=== PATIENT | male | born 1955 | race Caucasian/White ===

== ENCOUNTER 2023-03-03 12:43 | Inpatient (IN) | payer OTHER ==
[2023-03-03] MEDS ORDERED: SODIUM CHLORIDE 0.9% 500 ML INFUS.BAG IV ONE ×2 (13:36→15:40)
[2023-03-03] MEDS ORDERED: ACETAMINOPHEN 1000 MG/100 ML BAG IVPB ONE (13:36)
[2023-03-03 14:51] LABS: BASO % 0.5 % (0-2.0); EOS % 2.3 % (0-4.5); HEMATOCRIT 39.2 % (35.4-49); HEMOGLOBIN 13.2 GM/dL (11.7-16.9); MCH 32.7 pg (25.7-33.7); MCHC 33.6 g/dl (32.0-35.9); MEAN CELL VOLUME 97.4 fl (80-96); MEAN PLT VOLUME 8.5 fl (7.5-11.1); MONO % 10.9 % (3.8-10.2); NEUT % 50.3 % (42.8-82.8); PLATELET COUNT 294 10^3/uL (134-434); RBC 4.02 M/mm3 (4.00-5.60); RDW 13.6 % (11.9-15.9); WHITE BLOOD COUNT 7.4 K/mm3 (4.0-10.0)
[2023-03-03 15:01] LABS: POTASSIUM 4.1 mmol/L (3.5-5.1)
[2023-03-03 15:04] LABS: CALCIUM 8.8 mg/dL (8.5-10.1)
[2023-03-03 15:05] LABS: ALBUMIN 3.4 g/dl (3.4-5.0); BLOOD UREA NITROGEN 25.2 mg/dL (7-18)
[2023-03-03 15:08] LABS: CREATININE 0.8 mg/dL (0.55-1.3)
[2023-03-03 15:10] LABS: BILIRUBIN,TOTAL 1.3 mg/dL (0.2-1); TOT PROT 7.6 g/dl (6.4-8.2)
[2023-03-03 15:27] LABS: EPI CELLS 1 /uL (0-25.1); HYALINE CASTS 0 /uL (0-3.1); PH,URINE 5.5 (5.0-8.0); URINE APPEARANCE CLOUDY; URINE BACTERIA >9,000 /uL (0-1359); URINE BILIRUBIN NEGATIVE (NEGATIVE); URINE COLOR DK YELLOW; URINE GLUCOSE (UA) NEGATIVE (NEGATIVE); URINE KETONE NEGATIVE (NEGATIVE); URINE LEUK ESTERASE 3+ (NEGATIVE); URINE NITRITE POSITIVE (NEGATIVE); URINE PROTEIN TRACE (NEGATIVE); URINE RBC 33 /uL (0-23.9); URINE WBC 2709 /uL (0-25.8)
[2023-03-03] MEDS ORDERED: CEFTRIAXONE 1,000 MG in DEXTROSE 5%-WATER - 50 ML IVPB ONE (15:34)
[2023-03-03] MEDS ORDERED: CEFTRIAXONE 1 GM in DEXTROSE 5%-WATER - 50 ML IVPB ONE (16:02)
[2023-03-03] MEDS ORDERED: CEFTRIAXONE 1 GM/50 ML BAG ONE (16:40)
[2023-03-03] MEDS ORDERED: ACETAMINOPHEN INJECTION 100 ML IVPB ONE (18:44)
[2023-03-03] MEDS ORDERED: SODIUM PHOSPHATE/NA BIPHOS 133 ML ENEMA PR ONE (18:54)
[2023-03-03 22:29] LABS: BILIRUBIN,DIRECT 0.2 mg/dL (0.0-0.2)
[2023-03-04] MEDS: SODIUM CHLORIDE 1,000 ML IV SCH ×2 (03:11→23:37)
[2023-03-04] MEDS ORDERED: POLYETHYLENE GLYCOL (HEALTHYLAX) 3350 17 GM PACKET PO SCH (06:00)
[2023-03-04] MEDS: LEVOTHYROXINE NA 25 MCG TABLET (FP) PO SCH (07:02)
[2023-03-04] MEDS: ENOXAPARIN NA (PORCINE) 40 MG/0.4 ML DISP.SYRIN SQ SCH (11:05)
[2023-03-04 12:43] LABS: POTASSIUM 3.9 mmol/L (3.5-5.1)
[2023-03-04 12:46] LABS: BLOOD UREA NITROGEN 16.8 mg/dL (7-18); CALCIUM 8.4 mg/dL (8.5-10.1); MAGNESIUM 1.8 mg/dL (1.8-2.4)
[2023-03-04 12:50] LABS: CREATININE 0.7 mg/dL (0.55-1.3); HEMATOCRIT 38.4 % (35.4-49); HEMOGLOBIN 13.3 GM/dL (11.7-16.9); MCH 32.8 pg (25.7-33.7); MCHC 34.7 g/dl (32.0-35.9); MEAN CELL VOLUME 94.5 fl (80-96); MEAN PLT VOLUME 8.3 fl (7.5-11.1); PHOSPHOROUS 2.6 mg/dL (2.5-4.9); PLATELET COUNT 287 10^3/uL (134-434); RBC 4.06 M/mm3 (4.00-5.60); RDW 13.3 % (11.9-15.9); WHITE BLOOD COUNT 6.8 K/mm3 (4.0-10.0)
[2023-03-04 12:51] LABS: BILIRUBIN,TOTAL 1.1 mg/dL (0.2-1); TOT PROT 6.6 g/dl (6.4-8.2)
[2023-03-04] MEDS ORDERED: ACETAMINOPHEN 325 MG TABLET (FP) PO PRN (13:34)
[2023-03-04] MEDS: CEFTRIAXONE 1 GM in DEXTROSE 5%-WATER - 50 ML IVPB SCH (18:30)
[2023-03-04] MEDS: ATORVASTATIN CA 20 MG TABLET (FP) PO SCH (22:16)
[2023-03-04] MEDS: MELATONIN 5 MG TABLETS PO SCH (22:16)
[2023-03-04] MEDS: MIRTAZAPINE 15 MG TABLET (FP) PO SCH (22:16)
[2023-03-04] MEDS: ACETAMINOPHEN 325 MG TABLET (FP) PO PRN (23:37)
[2023-03-05] MEDS: LEVOTHYROXINE NA 25 MCG TABLET (FP) PO SCH (06:09)
[2023-03-05 09:22] LABS: BASO % 0.6 % (0-2.0); EOS % 2.8 % (0-4.5); HEMATOCRIT 36.4 % (35.4-49); HEMOGLOBIN 12.8 GM/dL (11.7-16.9); LYMPH % 38.4 % (8-40); MCH 33.1 pg (25.7-33.7); MCHC 35.2 g/dl (32.0-35.9); MEAN CELL VOLUME 94.2 fl (80-96); MEAN PLT VOLUME 7.8 fl (7.5-11.1); MONO % 9.4 % (3.8-10.2); NEUT % 48.8 % (42.8-82.8); PLATELET COUNT 279 10^3/uL (134-434); RBC 3.87 M/mm3 (4.00-5.60); RDW 13.4 % (11.9-15.9); WHITE BLOOD COUNT 5.2 K/mm3 (4.0-10.0)
[2023-03-05 09:45] LABS: CALCIUM 8.9 mg/dL (8.5-10.1)
[2023-03-05 09:46] LABS: BLOOD UREA NITROGEN 13.3 mg/dL (7-18)
[2023-03-05 09:50] LABS: CREATININE 0.7 mg/dL (0.55-1.3)
[2023-03-05 09:51] LABS: BILIRUBIN,TOTAL 0.7 mg/dL (0.2-1)
[2023-03-05 09:52] LABS: TOT PROT 6.5 g/dl (6.4-8.2)
[2023-03-05] MEDS ORDERED: POLYETHYLENE GLYCOL 3350 255 GM BTL PO SCH (10:00)
[2023-03-05] MEDS: CEFTRIAXONE 1 GM in DEXTROSE 5%-WATER - 50 ML IVPB SCH (11:08)
[2023-03-05] MEDS: POLYETHYLENE GLYCOL (HEALTHYLAX) 3350 17 GM PACKET PO SCH (11:08)
[2023-03-05] MEDS: ENOXAPARIN NA (PORCINE) 40 MG/0.4 ML DISP.SYRIN SQ SCH (11:08)
[2023-03-05] MEDS: MULTIVITAMINS (DAILY MVI) TABLET (FP) PO SCH (11:09)
[2023-03-05] MEDS: amLODIPine BESYLATE 5 MG TABLET (FP) PO SCH (11:09)
[2023-03-05] MEDS: FOLIC ACID 1 MG TABLET (FP) PO SCH (11:09)
[2023-03-05] MEDS: metoPROLOL SUCCINATE 25 MG TAB.SR.24H (FP) PO SCH (11:09)
[2023-03-05] MEDS: ASPIRIN COATED 81 MG TABLET.EC PO SCH (11:09)
[2023-03-05] MEDS: clonazePAM 0.5 MG TABLET PO SCH (11:10)
[2023-03-05] MEDS: MAGNESIUM OXIDE 400 MG TABLET (FP) PO SCH (11:10)
[2023-03-05] MEDS: FAMOTIDINE 20 MG TABLET PO SCH (11:10)
[2023-03-05] MEDS: THIAMINE HCL 100 MG TABLET (FP) PO SCH (11:11)
[2023-03-05] MEDS: MELATONIN 5 MG TABLETS PO SCH (21:31)
[2023-03-05] MEDS: MIRTAZAPINE 15 MG TABLET (FP) PO SCH (21:31)
[2023-03-05] MEDS: ATORVASTATIN CA 20 MG TABLET (FP) PO SCH (21:31)
[2023-03-05] MEDS: ACETAMINOPHEN 325 MG TABLET (FP) PO PRN (21:38)
[2023-03-06] MEDS: ACETAMINOPHEN 325 MG TABLET (FP) PO PRN (04:00)
[2023-03-06] MEDS: SODIUM CHLORIDE 1,000 ML IV SCH ×2 (04:02→21:38)
[2023-03-06] MEDS: LEVOTHYROXINE NA 25 MCG TABLET (FP) PO SCH (06:02)
[2023-03-06] MEDS: MAGNESIUM OXIDE 400 MG TABLET (FP) PO SCH (09:54)
[2023-03-06] MEDS: clonazePAM 0.5 MG TABLET PO SCH (09:54)
[2023-03-06] MEDS: amLODIPine BESYLATE 5 MG TABLET (FP) PO SCH (09:54)
[2023-03-06] MEDS: MULTIVITAMINS (DAILY MVI) TABLET (FP) PO SCH (09:54)
[2023-03-06] MEDS: ASPIRIN COATED 81 MG TABLET.EC PO SCH (09:54)
[2023-03-06] MEDS: FOLIC ACID 1 MG TABLET (FP) PO SCH (09:54)
[2023-03-06] MEDS: metoPROLOL SUCCINATE 25 MG TAB.SR.24H (FP) PO SCH (09:54)
[2023-03-06] MEDS: THIAMINE HCL 100 MG TABLET (FP) PO SCH (09:54)
[2023-03-06] MEDS: FAMOTIDINE 20 MG TABLET PO SCH (09:54)
[2023-03-06] MEDS: CEFTRIAXONE 1 GM in DEXTROSE 5%-WATER - 50 ML IVPB SCH (09:55)
[2023-03-06] MEDS: ENOXAPARIN NA (PORCINE) 40 MG/0.4 ML DISP.SYRIN SQ SCH (09:55)
[2023-03-06] MEDS: POLYETHYLENE GLYCOL (HEALTHYLAX) 3350 17 GM PACKET PO SCH (09:55)
[2023-03-06] MEDS: FINASTERIDE 5 MG TABLET (FP) PO SCH (11:39)
[2023-03-06] MEDS ORDERED: TAMSULOSIN HCL 0.4 MG CAP PO SCH (16:11)
[2023-03-06] MEDS: traMADol HCL 50 MG TABLET PO PRN (16:22)
[2023-03-06] MEDS ORDERED: LIDOCAINE HCL 2% JELLY 10 ML CARTRIDGE TP ONE (16:30)
[2023-03-06] MEDS: TAMSULOSIN HCL 0.4 MG CAP PO SCH (16:30)
[2023-03-06] MEDS: MELATONIN 5 MG TABLETS PO SCH (21:39)
[2023-03-06] MEDS: ATORVASTATIN CA 20 MG TABLET (FP) PO SCH (21:39)
[2023-03-06] MEDS: MIRTAZAPINE 15 MG TABLET (FP) PO SCH (21:40)
[2023-03-07] MEDS: SODIUM CHLORIDE 1,000 ML IV SCH ×2 (02:42→16:01)
[2023-03-07] MEDS: LEVOTHYROXINE NA 25 MCG TABLET (FP) PO SCH (06:20)
[2023-03-07] MEDS: traMADol HCL 50 MG TABLET PO PRN (07:11)
[2023-03-07] MEDS ORDERED: TAMSULOSIN HCL 0.4 MG CAP PO SCH (08:30)
[2023-03-07] MEDS: POLYETHYLENE GLYCOL (HEALTHYLAX) 3350 17 GM PACKET PO SCH (09:50)
[2023-03-07] MEDS: ENOXAPARIN NA (PORCINE) 40 MG/0.4 ML DISP.SYRIN SQ SCH (09:50)
[2023-03-07] MEDS: FOLIC ACID 1 MG TABLET (FP) PO SCH (09:52)
[2023-03-07] MEDS: FINASTERIDE 5 MG TABLET (FP) PO SCH (09:52)
[2023-03-07] MEDS: MAGNESIUM OXIDE 400 MG TABLET (FP) PO SCH (09:52)
[2023-03-07] MEDS: MULTIVITAMINS (DAILY MVI) TABLET (FP) PO SCH (09:52)
[2023-03-07] MEDS: TAMSULOSIN HCL 0.4 MG CAP PO SCH ×2 (09:52→21:49)
[2023-03-07] MEDS: ASPIRIN COATED 81 MG TABLET.EC PO SCH (09:53)
[2023-03-07] MEDS: FAMOTIDINE 20 MG TABLET PO SCH (09:53)
[2023-03-07] MEDS: clonazePAM 0.5 MG TABLET PO SCH (09:53)
[2023-03-07] MEDS: amLODIPine BESYLATE 5 MG TABLET (FP) PO SCH (09:53)
[2023-03-07] MEDS: THIAMINE HCL 100 MG TABLET (FP) PO SCH (09:53)
[2023-03-07] MEDS: metoPROLOL SUCCINATE 25 MG TAB.SR.24H (FP) PO SCH (09:54)
[2023-03-07] MEDS: CEFTRIAXONE 1 GM in DEXTROSE 5%-WATER - 50 ML IVPB SCH (09:55)
[2023-03-07] MEDS: ACETAMINOPHEN 325 MG TABLET (FP) PO PRN ×2 (10:49→21:58)
[2023-03-07] MEDS: MIRTAZAPINE 15 MG TABLET (FP) PO SCH (21:48)
[2023-03-07] MEDS: MELATONIN 5 MG TABLETS PO SCH (21:48)
[2023-03-07] MEDS: ATORVASTATIN CA 20 MG TABLET (FP) PO SCH (21:49)
[2023-03-08] MEDS: SODIUM CHLORIDE 1,000 ML IV SCH ×2 (02:50→19:55)
[2023-03-08] MEDS: LEVOTHYROXINE NA 25 MCG TABLET (FP) PO SCH (06:29)
[2023-03-08 08:35] LABS: BASO % 0.3 % (0-2.0); EOS % 1.9 % (0-4.5); HEMATOCRIT 35.7 % (35.4-49); HEMOGLOBIN 12.5 GM/dL (11.7-16.9); LYMPH % 20.5 % (8-40); MCHC 34.9 g/dl (32.0-35.9); MEAN CELL VOLUME 94.4 fl (80-96); MEAN PLT VOLUME 7.8 fl (7.5-11.1); MONO % 7.2 % (3.8-10.2); NEUT % 70.1 % (42.8-82.8); PLATELET COUNT 251 10^3/uL (134-434); RBC 3.78 M/mm3 (4.00-5.60); RDW 13.5 % (11.9-15.9); WHITE BLOOD COUNT 8.6 K/mm3 (4.0-10.0)
[2023-03-08 08:39] LABS: INR 1.34 (0.83-1.09); PROTHROMBIN TIME (PATIENT) 15.5 SEC (9.7-13.0)
[2023-03-08 08:42] LABS: ACTIVATED PTT 36.7 SECONDS (25.2-36.5)
[2023-03-08 09:03] LABS: POTASSIUM 3.8 mmol/L (3.5-5.1)
[2023-03-08 09:06] LABS: CALCIUM 8.5 mg/dL (8.5-10.1)
[2023-03-08 09:07] LABS: ALBUMIN 2.8 g/dl (3.4-5.0); BLOOD UREA NITROGEN 12.8 mg/dL (7-18)
[2023-03-08 09:10] LABS: CREATININE 0.7 mg/dL (0.55-1.3)
[2023-03-08 09:11] LABS: BILIRUBIN,TOTAL 0.6 mg/dL (0.2-1); TOT PROT 6.1 g/dl (6.4-8.2)
[2023-03-08] MEDS: POLYETHYLENE GLYCOL (HEALTHYLAX) 3350 17 GM PACKET PO SCH (11:22)
[2023-03-08] MEDS: CEFTRIAXONE 1 GM in DEXTROSE 5%-WATER - 50 ML IVPB SCH (11:22)
[2023-03-08] MEDS: ENOXAPARIN NA (PORCINE) 40 MG/0.4 ML DISP.SYRIN SQ SCH (11:30)
[2023-03-08] MEDS: ASPIRIN COATED 81 MG TABLET.EC PO SCH (11:31)
[2023-03-08] MEDS: FOLIC ACID 1 MG TABLET (FP) PO SCH (11:31)
[2023-03-08] MEDS: clonazePAM 0.5 MG TABLET PO SCH (11:31)
[2023-03-08] MEDS: MAGNESIUM OXIDE 400 MG TABLET (FP) PO SCH (11:31)
[2023-03-08] MEDS: TAMSULOSIN HCL 0.4 MG CAP PO SCH ×2 (11:31→21:14)
[2023-03-08] MEDS: THIAMINE HCL 100 MG TABLET (FP) PO SCH (11:31)
[2023-03-08] MEDS: FINASTERIDE 5 MG TABLET (FP) PO SCH (11:31)
[2023-03-08] MEDS: metoPROLOL SUCCINATE 25 MG TAB.SR.24H (FP) PO SCH (11:32)
[2023-03-08] MEDS: FAMOTIDINE 20 MG TABLET PO SCH (11:32)
[2023-03-08] MEDS: MULTIVITAMINS (DAILY MVI) TABLET (FP) PO SCH (11:32)
[2023-03-08] MEDS: amLODIPine BESYLATE 5 MG TABLET (FP) PO SCH (11:33)
[2023-03-08] MEDS: traMADol HCL 50 MG TABLET PO PRN (11:38)
[2023-03-08] MEDS: ACETAMINOPHEN 325 MG TABLET (FP) PO PRN (11:57)
[2023-03-08] MEDS ORDERED: MIDAZOLAM HCL 2 MG/2 ML SINGLE DOSE VIAL ONE (18:02)
[2023-03-08] MEDS ORDERED: FENTANYL CITRATE/PF 50 MCG/ML VIAL ONE ×2 (18:02→19:19)
[2023-03-08] MEDS ORDERED: ceFAZolin SODIUM 1 GM VIAL IVPB ONE (18:20)
[2023-03-08] MEDS ORDERED: LACTATED RINGERS SOLUTION 1,000 ML IV SCH (19:00)
[2023-03-08] MEDS ORDERED: traMADol HCL 50 MG TABLET PO PRN (19:11)
[2023-03-08] MEDS: MIRTAZAPINE 15 MG TABLET (FP) PO SCH (21:14)
[2023-03-08] MEDS: ATORVASTATIN CA 20 MG TABLET (FP) PO SCH (21:14)
[2023-03-08] MEDS: MELATONIN 5 MG TABLETS PO SCH (21:14)
[2023-03-09] MEDS: ACETAMINOPHEN 325 MG TABLET (FP) PO PRN (05:41)
[2023-03-09] MEDS: LEVOTHYROXINE NA 25 MCG TABLET (FP) PO SCH (06:40)
[2023-03-09 09:03] LABS: BASO % 0.3 % (0-2.0); EOS % 1.6 % (0-4.5); HEMATOCRIT 36.6 % (35.4-49); HEMOGLOBIN 12.2 GM/dL (11.7-16.9); LYMPH % 17.9 % (8-40); MCH 32.2 pg (25.7-33.7); MCHC 33.2 g/dl (32.0-35.9); MEAN CELL VOLUME 97.1 fl (80-96); MEAN PLT VOLUME 7.8 fl (7.5-11.1); NEUT % 73.2 % (42.8-82.8); PLATELET COUNT 253 10^3/uL (134-434); RBC 3.77 M/mm3 (4.00-5.60); RDW 13.3 % (11.9-15.9); WHITE BLOOD COUNT 7.4 K/mm3 (4.0-10.0)
[2023-03-09 09:32] LABS: POTASSIUM 3.8 mmol/L (3.5-5.1)
[2023-03-09 09:35] LABS: ALBUMIN 2.8 g/dl (3.4-5.0); BLOOD UREA NITROGEN 12.5 mg/dL (7-18); CALCIUM 8.6 mg/dL (8.5-10.1)
[2023-03-09 09:38] LABS: CREATININE 0.8 mg/dL (0.55-1.3)
[2023-03-09 09:39] LABS: BILIRUBIN,TOTAL 0.6 mg/dL (0.2-1)
[2023-03-09] MEDS: CEFTRIAXONE 1 GM in DEXTROSE 5%-WATER - 50 ML IVPB SCH (10:31)
[2023-03-09] MEDS: POLYETHYLENE GLYCOL (HEALTHYLAX) 3350 17 GM PACKET PO SCH (10:32)
[2023-03-09] MEDS: FAMOTIDINE 20 MG TABLET PO SCH (10:32)
[2023-03-09] MEDS: MAGNESIUM OXIDE 400 MG TABLET (FP) PO SCH (10:32)
[2023-03-09] MEDS: FOLIC ACID 1 MG TABLET (FP) PO SCH (10:32)
[2023-03-09] MEDS: ENOXAPARIN NA (PORCINE) 40 MG/0.4 ML DISP.SYRIN SQ SCH (10:32)
[2023-03-09] MEDS: MULTIVITAMINS (DAILY MVI) TABLET (FP) PO SCH (10:33)
[2023-03-09] MEDS: metoPROLOL SUCCINATE 25 MG TAB.SR.24H (FP) PO SCH (10:33)
[2023-03-09] MEDS: amLODIPine BESYLATE 5 MG TABLET (FP) PO SCH (10:33)
[2023-03-09] MEDS: FINASTERIDE 5 MG TABLET (FP) PO SCH (10:33)
[2023-03-09] MEDS: ASPIRIN COATED 81 MG TABLET.EC PO SCH (10:33)
[2023-03-09] MEDS: clonazePAM 0.5 MG TABLET PO SCH (10:33)
[2023-03-09] MEDS: THIAMINE HCL 100 MG TABLET (FP) PO SCH (10:33)
[2023-03-09] MEDS: TAMSULOSIN HCL 0.4 MG CAP PO SCH ×2 (10:33→21:42)
[2023-03-09 12:08] VITALS: BMI 23.3
[2023-03-09] MEDS: SODIUM CHLORIDE 1,000 ML IV SCH (21:40)
[2023-03-09] MEDS: ATORVASTATIN CA 20 MG TABLET (FP) PO SCH (21:41)
[2023-03-09] MEDS: MELATONIN 5 MG TABLETS PO SCH (21:42)
[2023-03-09] MEDS: MIRTAZAPINE 15 MG TABLET (FP) PO SCH (21:42)
[2023-03-10] MEDS: LEVOTHYROXINE NA 25 MCG TABLET (FP) PO SCH (06:44)
[2023-03-10] MEDS: ENOXAPARIN NA (PORCINE) 40 MG/0.4 ML DISP.SYRIN SQ SCH (10:41)
[2023-03-10] MEDS: CEFTRIAXONE 1 GM in DEXTROSE 5%-WATER - 50 ML IVPB SCH (10:42)
[2023-03-10] MEDS: MULTIVITAMINS (DAILY MVI) TABLET (FP) PO SCH (10:43)
[2023-03-10] MEDS: ASPIRIN COATED 81 MG TABLET.EC PO SCH (10:43)
[2023-03-10] MEDS: FAMOTIDINE 20 MG TABLET PO SCH (10:43)
[2023-03-10] MEDS: TAMSULOSIN HCL 0.4 MG CAP PO SCH ×2 (10:43→22:52)
[2023-03-10] MEDS: metoPROLOL SUCCINATE 25 MG TAB.SR.24H (FP) PO SCH (10:43)
[2023-03-10] MEDS: FINASTERIDE 5 MG TABLET (FP) PO SCH (10:43)
[2023-03-10] MEDS: THIAMINE HCL 100 MG TABLET (FP) PO SCH (10:43)
[2023-03-10] MEDS: MAGNESIUM OXIDE 400 MG TABLET (FP) PO SCH (10:43)
[2023-03-10] MEDS: FOLIC ACID 1 MG TABLET (FP) PO SCH (10:43)
[2023-03-10] MEDS: POLYETHYLENE GLYCOL (HEALTHYLAX) 3350 17 GM PACKET PO SCH (10:44)
[2023-03-10] MEDS: amLODIPine BESYLATE 5 MG TABLET (FP) PO SCH (10:44)
[2023-03-10] MEDS: clonazePAM 0.5 MG TABLET PO SCH (10:44)
[2023-03-10] MEDS: SODIUM CHLORIDE 1,000 ML IV SCH (21:06)
[2023-03-10] MEDS: MIRTAZAPINE 15 MG TABLET (FP) PO SCH (22:53)
[2023-03-10] MEDS: MELATONIN 5 MG TABLETS PO SCH (22:53)
[2023-03-10] MEDS: ACETAMINOPHEN 325 MG TABLET (FP) PO PRN (22:53)
[2023-03-10] MEDS: ATORVASTATIN CA 20 MG TABLET (FP) PO SCH (22:53)
[2023-03-11] MEDS: SODIUM CHLORIDE 1,000 ML IV SCH ×2 (02:13→20:00)
[2023-03-11] MEDS: LEVOTHYROXINE NA 25 MCG TABLET (FP) PO SCH (06:26)
[2023-03-11] MEDS: ENOXAPARIN NA (PORCINE) 40 MG/0.4 ML DISP.SYRIN SQ SCH (09:46)
[2023-03-11] MEDS: MAGNESIUM OXIDE 400 MG TABLET (FP) PO SCH (09:48)
[2023-03-11] MEDS: TAMSULOSIN HCL 0.4 MG CAP PO SCH ×2 (09:48→22:18)
[2023-03-11] MEDS: FINASTERIDE 5 MG TABLET (FP) PO SCH (09:48)
[2023-03-11] MEDS: MULTIVITAMINS (DAILY MVI) TABLET (FP) PO SCH (09:48)
[2023-03-11] MEDS: FOLIC ACID 1 MG TABLET (FP) PO SCH (09:48)
[2023-03-11] MEDS: ASPIRIN COATED 81 MG TABLET.EC PO SCH (09:49)
[2023-03-11] MEDS: FAMOTIDINE 20 MG TABLET PO SCH (09:49)
[2023-03-11] MEDS: THIAMINE HCL 100 MG TABLET (FP) PO SCH (09:49)
[2023-03-11] MEDS: clonazePAM 0.5 MG TABLET PO SCH (09:49)
[2023-03-11] MEDS: POLYETHYLENE GLYCOL (HEALTHYLAX) 3350 17 GM PACKET PO SCH (09:50)
[2023-03-11] MEDS: metoPROLOL SUCCINATE 25 MG TAB.SR.24H (FP) PO SCH (09:50)
[2023-03-11] MEDS: amLODIPine BESYLATE 5 MG TABLET (FP) PO SCH (09:51)
[2023-03-11] MEDS: CEFTRIAXONE 1 GM in DEXTROSE 5%-WATER - 50 ML IVPB SCH (11:14)
[2023-03-11] MEDS: ATORVASTATIN CA 20 MG TABLET (FP) PO SCH (22:18)
[2023-03-11] MEDS: MELATONIN 5 MG TABLETS PO SCH (22:18)
[2023-03-11] MEDS: MIRTAZAPINE 15 MG TABLET (FP) PO SCH (22:18)
[2023-03-12] MEDS: LEVOTHYROXINE NA 25 MCG TABLET (FP) PO SCH (06:06)
[2023-03-12] MEDS: ACETAMINOPHEN 325 MG TABLET (FP) PO PRN (06:06)
[2023-03-12] MEDS: CEFTRIAXONE 1 GM in DEXTROSE 5%-WATER - 50 ML IVPB SCH (10:15)
[2023-03-12] MEDS: MAGNESIUM OXIDE 400 MG TABLET (FP) PO SCH (10:16)
[2023-03-12] MEDS: MULTIVITAMINS (DAILY MVI) TABLET (FP) PO SCH (10:16)
[2023-03-12] MEDS: FINASTERIDE 5 MG TABLET (FP) PO SCH (10:16)
[2023-03-12] MEDS: ASPIRIN COATED 81 MG TABLET.EC PO SCH (10:16)
[2023-03-12] MEDS: THIAMINE HCL 100 MG TABLET (FP) PO SCH (10:16)
[2023-03-12] MEDS: POLYETHYLENE GLYCOL (HEALTHYLAX) 3350 17 GM PACKET PO SCH (10:16)
[2023-03-12] MEDS: clonazePAM 0.5 MG TABLET PO SCH (10:16)
[2023-03-12] MEDS: metoPROLOL SUCCINATE 25 MG TAB.SR.24H (FP) PO SCH ×2 (10:16→10:23)
[2023-03-12] MEDS: TAMSULOSIN HCL 0.4 MG CAP PO SCH ×2 (10:17→21:20)
[2023-03-12] MEDS: amLODIPine BESYLATE 5 MG TABLET (FP) PO SCH (10:17)
[2023-03-12] MEDS: FAMOTIDINE 20 MG TABLET PO SCH (10:17)
[2023-03-12] MEDS: ENOXAPARIN NA (PORCINE) 40 MG/0.4 ML DISP.SYRIN SQ SCH (10:17)
[2023-03-12] MEDS: FOLIC ACID 1 MG TABLET (FP) PO SCH (10:17)
[2023-03-12] MEDS: SODIUM CHLORIDE 1,000 ML IV SCH (21:19)
[2023-03-12] MEDS: ATORVASTATIN CA 20 MG TABLET (FP) PO SCH (21:20)
[2023-03-12] MEDS: MELATONIN 5 MG TABLETS PO SCH (21:21)
[2023-03-12] MEDS: MIRTAZAPINE 15 MG TABLET (FP) PO SCH (21:21)
[2023-03-13] MEDS: LEVOTHYROXINE NA 25 MCG TABLET (FP) PO SCH (06:12)
[2023-03-13] MEDS: TAMSULOSIN HCL 0.4 MG CAP PO SCH ×2 (10:58→22:04)
[2023-03-13] MEDS: THIAMINE HCL 100 MG TABLET (FP) PO SCH (10:58)
[2023-03-13] MEDS: CEFTRIAXONE 1 GM in DEXTROSE 5%-WATER - 50 ML IVPB SCH (10:58)
[2023-03-13] MEDS: metoPROLOL SUCCINATE 25 MG TAB.SR.24H (FP) PO SCH (10:58)
[2023-03-13] MEDS: FINASTERIDE 5 MG TABLET (FP) PO SCH (10:58)
[2023-03-13] MEDS: MULTIVITAMINS (DAILY MVI) TABLET (FP) PO SCH (10:58)
[2023-03-13] MEDS: MAGNESIUM OXIDE 400 MG TABLET (FP) PO SCH (10:58)
[2023-03-13] MEDS: ASPIRIN COATED 81 MG TABLET.EC PO SCH (10:58)
[2023-03-13] MEDS: clonazePAM 0.5 MG TABLET PO SCH (10:58)
[2023-03-13] MEDS: FAMOTIDINE 20 MG TABLET PO SCH (10:58)
[2023-03-13] MEDS: amLODIPine BESYLATE 5 MG TABLET (FP) PO SCH (10:58)
[2023-03-13] MEDS: FOLIC ACID 1 MG TABLET (FP) PO SCH (10:58)
[2023-03-13] MEDS: ENOXAPARIN NA (PORCINE) 40 MG/0.4 ML DISP.SYRIN SQ SCH (10:59)
[2023-03-13] MEDS: POLYETHYLENE GLYCOL (HEALTHYLAX) 3350 17 GM PACKET PO SCH (11:00)
[2023-03-13] MEDS: SODIUM CHLORIDE 1,000 ML IV SCH (22:01)
[2023-03-13] MEDS: MIRTAZAPINE 15 MG TABLET (FP) PO SCH ×2 (22:04→22:08)
[2023-03-13] MEDS: ATORVASTATIN CA 20 MG TABLET (FP) PO SCH (22:04)
[2023-03-13] MEDS: MELATONIN 5 MG TABLETS PO SCH (22:08)
[2023-03-14] MEDS: LEVOTHYROXINE NA 25 MCG TABLET (FP) PO SCH (06:15)
[2023-03-14] MEDS: MAGNESIUM OXIDE 400 MG TABLET (FP) PO SCH (10:34)
[2023-03-14] MEDS: THIAMINE HCL 100 MG TABLET (FP) PO SCH (10:34)
[2023-03-14] MEDS: ASPIRIN COATED 81 MG TABLET.EC PO SCH (10:35)
[2023-03-14] MEDS: FAMOTIDINE 20 MG TABLET PO SCH (10:35)
[2023-03-14] MEDS: clonazePAM 0.5 MG TABLET PO SCH (10:35)
[2023-03-14] MEDS: metoPROLOL SUCCINATE 25 MG TAB.SR.24H (FP) PO SCH (10:35)
[2023-03-14] MEDS: TAMSULOSIN HCL 0.4 MG CAP PO SCH ×2 (10:35→21:34)
[2023-03-14] MEDS: MULTIVITAMINS (DAILY MVI) TABLET (FP) PO SCH (10:35)
[2023-03-14] MEDS: POLYETHYLENE GLYCOL (HEALTHYLAX) 3350 17 GM PACKET PO SCH (10:35)
[2023-03-14] MEDS: FOLIC ACID 1 MG TABLET (FP) PO SCH (10:35)
[2023-03-14] MEDS: amLODIPine BESYLATE 5 MG TABLET (FP) PO SCH (10:35)
[2023-03-14] MEDS: ENOXAPARIN NA (PORCINE) 40 MG/0.4 ML DISP.SYRIN SQ SCH (10:35)
[2023-03-14] MEDS: FINASTERIDE 5 MG TABLET (FP) PO SCH (10:35)
[2023-03-14] MEDS: CEFTRIAXONE 1 GM in DEXTROSE 5%-WATER - 50 ML IVPB SCH (10:36)
[2023-03-14] MEDS: SODIUM CHLORIDE 1,000 ML IV SCH (19:30)
[2023-03-14] MEDS: ATORVASTATIN CA 20 MG TABLET (FP) PO SCH (21:34)
[2023-03-14] MEDS: MELATONIN 5 MG TABLETS PO SCH (21:34)
[2023-03-14] MEDS: MIRTAZAPINE 15 MG TABLET (FP) PO SCH (21:34)
[2023-03-15 05:55] VITALS: RESP 18
[2023-03-15] MEDS: LEVOTHYROXINE NA 25 MCG TABLET (FP) PO SCH (06:51)
[2023-03-15 09:34] VITALS: BP 103/64; PULSE 76; TEMP 97.6
[2023-03-15] MEDS: metoPROLOL SUCCINATE 25 MG TAB.SR.24H (FP) PO SCH (09:54)
[2023-03-15] MEDS ORDERED: CEFUROXIME AXETIL 500 MG TABLET PO SCH (10:00)
[2023-03-15] MEDS: POLYETHYLENE GLYCOL (HEALTHYLAX) 3350 17 GM PACKET PO SCH (10:31)
[2023-03-15] MEDS: amLODIPine BESYLATE 5 MG TABLET (FP) PO SCH (10:44)
[2023-03-15] MEDS: THIAMINE HCL 100 MG TABLET (FP) PO SCH (10:44)
[2023-03-15] MEDS: TAMSULOSIN HCL 0.4 MG CAP PO SCH (10:44)
[2023-03-15] MEDS: FOLIC ACID 1 MG TABLET (FP) PO SCH (10:44)
[2023-03-15] MEDS: ASPIRIN COATED 81 MG TABLET.EC PO SCH (10:44)
[2023-03-15] MEDS: FAMOTIDINE 20 MG TABLET PO SCH (10:44)
[2023-03-15] MEDS: MULTIVITAMINS (DAILY MVI) TABLET (FP) PO SCH (10:44)
[2023-03-15] MEDS: ENOXAPARIN NA (PORCINE) 40 MG/0.4 ML DISP.SYRIN SQ SCH (10:45)
[2023-03-15] MEDS: FINASTERIDE 5 MG TABLET (FP) PO SCH (10:45)
[2023-03-15] MEDS: MAGNESIUM OXIDE 400 MG TABLET (FP) PO SCH (10:45)
[2023-03-15] MEDS: clonazePAM 0.5 MG TABLET PO SCH (10:45)
[2023-03-15] MEDS: metroNIDAZOLE 250 MG TABLET PO SCH ×2 (12:31→17:23)
== END 2023-03-15 20:00 | DRG 713 ==
LOC: JER 12:43 → JERBED 19:51 → J7W 21:20 → OBSVTOIN 23:15
PROVIDERS: ADMIT Internal Medicine; ATTEND Internal Medicine
PROC: 0VT08ZZ Resection of Prostate, Via Natural or Artificial Opening Endoscopic (ICD-10-PCS; principal; 2023-03-08 17:30)
DX: N40.1 Benign prostatic hyperplasia with lower urinary tract symptoms (principal); F05 Delirium due to known physiological condition; N39.0 Urinary tract infection, site not specified; E03.9 Hypothyroidism, unspecified; E78.5 Hyperlipidemia, unspecified; I25.10 Atherosclerotic heart disease of native coronary artery without angina pectoris; R10.30 Lower abdominal pain, unspecified; R33.9 Retention of urine, unspecified; K59.00 Constipation, unspecified; K52.89 Other specified noninfective gastroenteritis and colitis; B96.20 Unspecified Escherichia coli [E. coli] as the cause of diseases classified elsewhere
CPT/HCPCS: 36415; 74176-TC; 80053; 81003; 82248; 83735; 84100; 84153; 85025; 85027; 85610; 85730; 87086; 87186; 88305-TC; 94760; 97116-GP; 97161-GP; 99285-25; G0378

== ENCOUNTER 2024-01-23 14:34 | Inpatient (IN) | payer OTHER ==
[2024-01-23 15:23] VITALS: RESP 16; TEMP 97.8; BMI 21.6
[2024-01-23] MEDS ORDERED: ACETAMINOPHEN INJECTION 100 ML ONE (15:44)
[2024-01-23] MEDS: ACETAMINOPHEN 1000 MG/100 ML BAG IVPB ONE (15:46)
[2024-01-23 15:53] LABS: BASO % 0.2 % (0-2.0); EOS % 0.3 % (0-4.5); HEMATOCRIT 39.4 % (35.4-49); HEMOGLOBIN 13.5 GM/dL (11.7-16.9); LYMPH % 6.9 % (8-40); MCHC 34.2 g/dl (32.0-35.9); MEAN CELL VOLUME 102.2 fl (80-96); MEAN PLT VOLUME 7.4 fl (7.5-11.1); MONO % 9.7 % (3.8-10.2); NEUT % 82.9 % (42.8-82.8); PLATELET COUNT 303 10^3/uL (134-434); RBC 3.86 M/mm3 (4.00-5.60); RDW 15.5 % (11.9-15.9); WHITE BLOOD COUNT 11.5 K/mm3 (4.0-10.0)
[2024-01-23 16:08] LABS: INR 1.08 (0.83-1.09); PROTHROMBIN TIME (PATIENT) 12.2 SEC (9.7-13.0)
[2024-01-23 16:09] LABS: ALBUMIN 3.1 g/dl (3.4-5.0); BLOOD UREA NITROGEN 43.2 mg/dL (7-18); CALCIUM 7.5 mg/dL (8.5-10.1)
[2024-01-23 16:11] LABS: ACTIVATED PTT 31.9 SECONDS (25.2-36.5)
[2024-01-23 16:12] LABS: CREATININE 1.9 mg/dL (0.55-1.3)
[2024-01-23 16:13] LABS: BILIRUBIN,TOTAL 0.3 mg/dL (0.2-1)
[2024-01-23 16:14] LABS: TOT PROT 6.4 g/dl (6.4-8.2)
[2024-01-23] MEDS ORDERED: PANTOPRAZOLE SODIUM 40 MG VIAL ONE (16:48)
[2024-01-23] MEDS: PANTOPRAZOLE SODIUM 40 MG VIAL IVPUSH ONE (16:54)
[2024-01-23] MEDS: SODIUM CHLORIDE 1,000 ML IV STA (17:00)
[2024-01-23] MEDS ORDERED: POTASSIUM CHLORIDE TABS 20 MEQ TABLET.ER (FP) PO ONE (17:41)
[2024-01-23] MEDS ORDERED: MAGNESIUM SULF 50% (8.12 MEQ/2 ML-1 GM VIAL) ONE (17:42)
[2024-01-23 18:08] VITALS: PULSE 76
[2024-01-23] MEDS: MAGNESIUM SULF 50% (8.12 MEQ/2 ML-1 GM VIAL) IVPB ONE (18:10)
[2024-01-23] MEDS: POTASSIUM CHLORIDE TABS 20 MEQ TABLET.ER (FP) PO ONE (18:10)
[2024-01-23 18:25] LABS: HEMATOCRIT 40.5 % (35.4-49); HEMOGLOBIN 13.9 GM/dL (11.7-16.9); MCH 35.5 pg (25.7-33.7); MCHC 34.3 g/dl (32.0-35.9); MEAN CELL VOLUME 103.4 fl (80-96); MEAN PLT VOLUME 7.2 fl (7.5-11.1); PLATELET COUNT 282 10^3/uL (134-434); RBC 3.91 M/mm3 (4.00-5.60); RDW 15.3 % (11.9-15.9); WHITE BLOOD COUNT 11.1 K/mm3 (4.0-10.0)
[2024-01-23 18:50] VITALS: BP 127/67
[2024-01-23] MEDS ORDERED: clonazePAM 0.5 MG TABLET ONE (19:23)
[2024-01-23] MEDS: clonazePAM 0.5 MG TABLET PO ONE (19:26)
[2024-01-23] MEDS ORDERED: ACETAMINOPHEN 1000 MG/100 ML BAG IVPB PRN (20:36)
[2024-01-23] MEDS ORDERED: SODIUM CHLORIDE 1,000 ML IV STA (21:34)
[2024-01-23] MEDS ORDERED: SODIUM CHLORIDE 1,000 ML IV SCH (21:45)
[2024-01-24] MEDS ORDERED: PANTOPRAZOLE SODIUM 40 MG VIAL IVPUSH SCH (10:00)
[2024-01-24] MEDS ORDERED: PANTOPRAZOLE SODIUM 40 MG VIAL IVPUSH ONE (16:00)
== END 2024-01-24 01:10 | disposition left against medical advice (07) | DRG 378 ==
LOC: JER 14:34 → JERBED 19:22
PROVIDERS: ADMIT Internal Medicine; ATTEND Registered Nurse
DX: K92.2 Gastrointestinal hemorrhage, unspecified (principal); E87.1 Hypo-osmolality and hyponatremia; N17.9 Acute kidney failure, unspecified; I10 Essential (primary) hypertension; E03.9 Hypothyroidism, unspecified; E78.5 Hyperlipidemia, unspecified; E87.6 Hypokalemia; K70.10 Alcoholic hepatitis without ascites; D72.829 Elevated white blood cell count, unspecified; F10.20 Alcohol dependence, uncomplicated; F32.A Depression, unspecified; G62.9 Polyneuropathy, unspecified
CPT/HCPCS: 0241U-QW; 36415; 71045-TC-FY; 74176-TC; 80053; 82272; 82607; 82746; 83690; 84484; 85025; 85027; 85610; 85730; 86850; 86900; 86901; 93005; 93010; 99285-25; J0131